=== PATIENT | female | born 1955 | race Caucasian/White ===

== ENCOUNTER 2020-08-25 21:47 | Emergency (ER) | payer BC ==
[2020-08-25 21:56] VITALS: BP 120/74; PULSE 102; RESP 20; TEMP 98.3
[2020-08-25] MEDS ORDERED: MORPHINE SULFATE 4 MG/ML SYRINGE IM STA (22:12)
--- NOTE | 2020-08-25 22:46 | ED ---
Fall HPI - General Chief Complaint: Fall Stated Complaint: Fall,Hip injury Time Seen by Provider: 08/25/20 22:00 Source: patient, family Mode of arrival: wheelchair - History of Present Illness Initial Comments: Patient is a 65-year-old female with history of essential tremors and recent left hip replacement at [facility]. Patient had this completed on Thursday. She reports that she was standing in the bathroom yesterday pulling up her pants and tripped. She reports that she fell between the toilet and the bathtub. She states that she landed with her right ribs on the bathtub. She denies any significant pain and reports that that seems to be able improving. Patient states that she has been taking Percocet for the recent hip replacement surgery. Patient is also on L Raghu. She did hit her head when she fell yesterday but had no significant loss of consciousness. After discussing the fall with her visiting nurse they recommended she come to the ER due to being on blood thinners and hitting her head as well as the rib pain. Denies dysuria. Denies abdominal pain. He states she had normal urination today. - Related Data Home Medications Medication Instructions Recorded Confirmed Apixaban [Eliquis] 2.5 mg PO BID 08/25/20 08/25/20 Cetirizine HCl 5 mg PO HS 08/25/20 08/25/20 Diazepam [Valium] 5 mg PO TID PRN 08/25/20 08/25/20 Docusate [Colace] 100 mg PO BID 08/25/20 08/25/20 Escitalopram [Lexapro] 20 mg PO HS 08/25/20 08/25/20 Fluticasone/Salmeterol [Advair 1 puff INHALATION RT-BID 08/25/20 08/25/20 100-50 Diskus] HYDROcodone/APAP 5-325MG [[place] 1 - 2 tab PO Q4H PRN 08/25/20 08/25/20 5-325] Methylphenidate HCl [Ritalin] 10 mg PO DAILY 08/25/20 08/25/20 Montelukast [Singulair] 10 mg PO HS 08/25/20 08/25/20 Naproxen Sodium [Aleve] 220 mg PO Q8H PRN 08/25/20 08/25/20 Pantoprazole Sodium [Protonix] 40 mg PO BID 08/25/20 08/25/20 Sennosides [Senna] 17.2 mg PO HS 08/25/20 08/25/20 Previous Rx's Medication Instructions Recorded HYDROcodone/APAP 5-325MG [[place] 1 tab PO Q6HR PRN #12 tab 08/25/20 5-325] Allergies Allergy/AdvReac Type Severity Reaction Status Date / Time No Known Allergies Allergy Verified 08/25/20 23:21 Review of Systems ROS Statement: Those systems with pertinent positive or pertinent negative responses have been documented in the HPI. ROS Other: All systems not noted in ROS Statement are negative. Past Medical History Past Medical History: Osteoarthritis (OA) Additional Past Medical History / Comment(s): essential tremors,contstipation History of Any Multi-Drug Resistant Organisms: None Reported Past Surgical History: Joint Replacement Additional Past Surgical History / Comment(s): chapo hip replacement Past Psychological History: Depression Smoking Status: Never smoker Past Alcohol Use History: None Reported Past Drug Use History: None Reported General Exam - General Exam Comments Initial Comments: 65-year-old female. Alert and oriented 3. No acute distress. Limitations: physical limitation General appearance: alert, in no apparent distress Head exam: Present: atraumatic, normocephalic, normal inspection Eye exam: Present: normal appearance, PERRL, EOMI. Absent: scleral icterus, conjunctival injection, periorbital swelling ENT exam: Present: normal exam, mucous membranes moist Neck exam: Present: normal inspection. Absent: tenderness, meningismus, lymphadenopathy Respiratory exam: Present: normal lung sounds bilaterally, other (Bruising and tenderness over the right lower rib 9 and 10). Absent: respiratory distress, wheezes, rales, rhonchi, stridor Cardiovascular Exam: Present: regular rate, normal rhythm, normal heart sounds. Absent: systolic murmur, diastolic murmur, rubs, gallop, clicks GI/Abdominal exam: Present: soft, normal bowel sounds. Absent: distended, tenderness, guarding, rebound, rigid Extremities exam: Present: normal inspection, full ROM, normal capillary refill, other (Well-appearing and healing incision site over the left hip. Gauze is clean without blood.). Absent: tenderness, pedal edema, joint swelling, calf tenderness Back exam: Present: normal inspection Neurological exam: Present: alert, oriented X3, CN II-XII intact Psychiatric exam: Present: normal affect, normal mood Skin exam: Present: warm, dry, intact, normal color. Absent: rash Course Vital Signs 08/25/20 21:51 Temperature 98.3 F Pulse Rate 102 H Respiratory 20 Rate Blood Pressure 120/74 O2 Sat by Pulse 95 Oximetry Disposition Clinical Impression: Rib contusion, Fall, Minor head injury, S/P hip replacement Disposition: HOME SELF-CARE Condition: Good Instructions (If sedation given, give patient instructions): Fall Prevention (ED), Rib Contusion (ED) Additional Instructions: Patient should use incentive spirometer as discussed and take deep breaths every hour. Patient can follow-up with primary care doctor. Use pain medicine as discussed. Return to the ED if any alarming signs or symptoms occur. Prescriptions: HYDROcodone/APAP 5-325MG [[place] 5-325] 1 tab PO Q6HR PRN #12 tab PRN Reason: Pain Is patient prescribed a controlled substance at d/c from ED?: Yes If prescribed controlled substance>3 days was MAPS reviewed?: Prescribed <3 Days If opioid is for acute pain is fill amount 7 days or less?: Yes If Rx opioid, was Start Talking consent form obtained?: Yes Referrals: None,Stated [Primary Care Provider] - 1-2 days Time of Disposition: 23:32
--- NOTE | 2020-08-25 22:52 | CT ---
EXAMINATION TYPE: CT brain cspine wo con DATE OF EXAM: 08/25/2020 COMPARISON: None HISTORY: fall Headache. Neck pain CT DLP: 1371.7 mGycm Automated exposure control for dose reduction was used. Ventricles have normal size. There is no mass effect nor midline shift. There is no sign of intracran ial hemorrhage. Calvarium is intact. Skull base is intact. There is normal aeration of the mastoid si nuses. The cervical vertebra have normal alignment. Posterior elements are intact. There is narrowing of C5- 6 and C6-7 disc spaces with spurring. There is no cervical compression fracture. There is facet arthr opathy in the mid and lower cervical spine. IMPRESSION: Spondylotic changes in the lower cervical spine. No fracture. Negative CT scan of the brain. No evidence of traumatic injury.
--- NOTE | 2020-08-25 22:53 | XR ---
EXAMINATION TYPE: XR chest 2V DATE OF EXAM: 08/25/2020 COMPARISON: NONE HISTORY: Fall. Chest pain TECHNIQUE: FINDINGS: There is no heart failure nor confluent pneumonic infiltrate. Costophrenic angles are clear . There are no hilar masses. Bony thorax is intact. There is no sign of pleural effusion or pneumotho rax. IMPRESSION: No active cardiopulmonary disease.
--- NOTE | 2020-08-25 22:58 | XR ---
EXAMINATION TYPE: XR pelvis AP view DATE OF EXAM: 08/25/2020 COMPARISON: NONE HISTORY: Fall. Pain TECHNIQUE: 2 views FINDINGS: Pelvic ring is intact. There is bilateral hip prosthesis. I see no fracture. Sacroiliac anay nts are intact. There is pessary at the floor the pelvis. IMPRESSION: No acute abnormality of the pelvis.
[2020-08-25] MEDS ORDERED: ACET/COD 300 MG/30 MG STARTER PACK 6 TAB BTL PO STA (23:34)
== END 2020-08-25 23:50 | disposition home or self-care (01) ==
LOC: EC 21:47
DX: S20.211A Contusion of right front wall of thorax, initial encounter (principal); S09.90XA Unspecified injury of head, initial encounter; F32.9 Major depressive disorder, single episode, unspecified; M19.90 Unspecified osteoarthritis, unspecified site; R25.1 Tremor, unspecified; Z79.01 Long term (current) use of anticoagulants; Z79.899 Other long term (current) drug therapy; Z96.643 Presence of artificial hip joint, bilateral; W01.198A Fall on same level from slipping, tripping and stumbling with subsequent striking against other object, initial encounter; Y93.89 Activity, other specified; Y92.002 Bathroom of unspecified non-institutional (private) residence as the place of occurrence of the external cause
CPT/HCPCS: 72170; 71046; 72125; 70450; 99284; 96372; J2270

== ENCOUNTER 2020-09-23 11:01 | Emergency (ER) | payer BC ==
[2020-09-23 11:14] VITALS: PULSE 96; RESP 18; TEMP 98.8
[2020-09-23] MEDS ORDERED: COLCHICINE 0.6 MG EACH PO STA (11:30)
[2020-09-23] MEDS ORDERED: KETOROLAC 15 MG/ML 1 ML VIAL IVP STA (11:30)
[2020-09-23] MEDS ORDERED: KETOROLAC 15 MG/ML 1 ML VIAL IM STA (11:38)
--- NOTE | 2020-09-23 12:04 | XR ---
EXAMINATION TYPE: XR foot complete LT DATE OF EXAM: 09/23/2020 CLINICAL HISTORY: Pain worse in the first toe. TECHNIQUE: Frontal, lateral, and oblique images of the left foot are obtained. COMPARISON: None FINDINGS: There is no acute fracture/dislocation evident in the left foot. The Zaragoza's toe is seen . Some flexion of the toes is present. Small inferior calcaneal spur. Mild spurring midfoot level. T he overlying soft tissue appears unremarkable. IMPRESSION: As above.
--- NOTE | 2020-09-23 12:14 | ED ---
Lower Extremity Injury HPI - General Chief Complaint: Extremity Injury, Lower Stated Complaint: toe infection Time Seen by Provider: 09/23/20 11:23 Source: patient Mode of arrival: ambulatory Limitations: no limitations - History of Present Illness Initial Comments: 65-year-old female presented for left great toe redness. Patient states that she has had significant pain and redness of the left great toe initially it was just slightly tender in maximal tenderness happened roughly 24 hours after onset. Patient states that she is concerned because is slightly red that it may be infected she denies fevers chills general malaise. Patient denies any breaks in skin. Patient denies any known history of gout patient states she recently had left hip surgery. she denies foot swelling or calf pain. denies known history of gout. pt drinks on occasion. patient has no additional complaints. denies injury. she appears well nontoxic on arrival initial BP elevated. Repeat WNL. - Related Data Home Medications Medication Instructions Recorded Confirmed Apixaban [Eliquis] 2.5 mg PO BID 08/25/20 08/25/20 Cetirizine HCl 5 mg PO HS 08/25/20 08/25/20 Diazepam [Valium] 5 mg PO TID PRN 08/25/20 08/25/20 Docusate [Colace] 100 mg PO BID 08/25/20 08/25/20 Escitalopram [Lexapro] 20 mg PO HS 08/25/20 08/25/20 Fluticasone/Salmeterol [Advair 1 puff INHALATION RT-BID 08/25/20 08/25/20 100-50 Diskus] HYDROcodone/APAP 5-325MG [[place] 1 - 2 tab PO Q4H PRN 08/25/20 08/25/20 5-325] Methylphenidate HCl [Ritalin] 10 mg PO DAILY 08/25/20 08/25/20 Montelukast [Singulair] 10 mg PO HS 08/25/20 08/25/20 Naproxen Sodium [Aleve] 220 mg PO Q8H PRN 08/25/20 08/25/20 Pantoprazole Sodium [Protonix] 40 mg PO BID 08/25/20 08/25/20 Sennosides [Senna] 17.2 mg PO HS 08/25/20 08/25/20 Previous Rx's Medication Instructions Recorded HYDROcodone/APAP 5-325MG [[place] 1 tab PO Q6HR PRN #12 tab 08/25/20 5-325] Indomethacin [Indocin] 50 mg PO TID 3 Days #9 capsule 09/23/20 predniSONE 50 mg PO DAILY 4 Days #4 tab 09/23/20 Allergies Allergy/AdvReac Type Severity Reaction Status Date / Time No Known Allergies Allergy Verified 09/23/20 11:11 Review of Systems ROS Statement: Those systems with pertinent positive or pertinent negative responses have been documented in the HPI. ROS Other: All systems not noted in ROS Statement are negative. Past Medical History Past Medical History: Osteoarthritis (OA) Additional Past Medical History / Comment(s): essential tremors,contstipation History of Any Multi-Drug Resistant Organisms: None Reported Past Surgical History: Joint Replacement Additional Past Surgical History / Comment(s): chapo hip replacement Past Psychological History: Depression Smoking Status: Never smoker Past Alcohol Use History: Occasional Past Drug Use History: None Reported General Exam - General Exam Comments Initial Comments: General: The patient is awake and alert, in no distress, and does not appear acutely ill. Eye: Pupils are equal, round and reactive to light, extra-ocular movements are intact. No nystagmus. There is normal conjunctiva bilaterally. No signs of icterus. Ears, nose, mouth and throat: There are moist mucous membranes and no oral lesions. Neck: The neck is supple, there is no tenderness or JVD. Cardiovascular: There is a regular rate and rhythm. No murmur, rub or gallop is appreciated. Respiratory: Lungs are clear to auscultation, respirations are non-labored, breath sounds are equal. No wheezes, stridor, rales, or rhonchi. Musculoskeletal: Mild redness and warmth of the MTP joint of the left great toe, no breaks in skin. no lymphangitis. Normal ROM, of the joint with tenderness.=. Strength 5/5. Sensation intact. Dp pulses equal bilaterally 2+. Neurological: A&O x 3. CN II-XII intact grossly, There are no obvious motor or sensory deficits. Coordination appears grossly intact. Speech is normal. Skin: Skin is warm and dry and no rashes or lesions are noted. Psychiatric: Cooperative, appropriate mood & affect, normal judgment. Limitations: no limitations Course Vital Signs 09/23/20 09/23/20 11:12 12:24 Temperature 98.8 F Pulse Rate 96 Respiratory 18 Rate Blood Pressure 139/120 123/82 O2 Sat by Pulse 98 Oximetry Medical Decision Making - Medical Decision Making pleasant 65yo presenting for left great toe pain at MTP joint. exam felt most consistent with gout. surgery felt to be most likely precipitant. patient symptoms ongoing > 36 hours. will use NSAIDs for treatment with short course steroids. pt is to follow-up with orthopedic surgery. return for fevers, worsening pain/redness. patient is agreeable to this care plan as well as attending Dr. Garrison. patient discharged appearing well Disposition Clinical Impression: Great toe pain Disposition: HOME SELF-CARE Condition: Good Instructions (If sedation given, give patient instructions): Low Purine Diet (ED), Gout (ED) Additional Instructions: Please use medication as discussed. Please follow-up with family doctor in the next 2 days, as well as orthopedic surgery. If develop fevers, please return to the ER. Please return to emergency room if the symptoms increase or worsen or for any other concerns. Prescriptions: Indomethacin [Indocin] 50 mg PO TID 3 Days #9 capsule predniSONE 50 mg PO DAILY 4 Days #4 tab Is patient prescribed a controlled substance at d/c from ED?: No Referrals: Karen Coulter DO [Primary Care Provider] - 1-2 days Otoniel Aparicio MD [STAFF PHYSICIAN] - 1-2 days Time of Disposition: 12:14
[2020-09-23 12:25] VITALS: BP 123/82
== END 2020-09-23 12:53 | disposition home or self-care (01) ==
LOC: EC 11:01
DX: M79.675 Pain in left toe(s) (principal); F32.9 Major depressive disorder, single episode, unspecified; Z79.899 Other long term (current) drug therapy; Z96.643 Presence of artificial hip joint, bilateral
CPT/HCPCS: 73630; 99283; 96372; J1885

== ENCOUNTER → 2024-10-20 | Outpatient (CLI) | payer MEDICARE ==
[2024-10-20 20:11] LABS: Rheumatoid Factor, Qnt <15 IU/mL (0-15); Uric Acid 3.5 mg/dL (2.9-7.7)
[2024-10-21 09:06] LABS: HLA B27 NEGATIVE
== END | disposition home or self-care (01) ==
LOC: LABWHC1 12:01
PROVIDERS: ATTEND Plastic Surgery Surgery of the Hand
DX: M1A.0310 Idiopathic chronic gout, right wrist, without tophus (tophi) (principal)
CPT/HCPCS: 36415; 84550; 85652; 86038; 86140; 86431; 86812